=== PATIENT | female | born 1955 | race Caucasian/White ===

== ENCOUNTER 2022-05-20 06:35 | Day surgery (SDC) | payer BC, SELFPAY ==
[2022-05-20] VITALS (7 sets, daily range): BP systolic 130–177; BP diastolic 63–93; PULSE 48–67; RESP 16; TEMP 36.1–36.5; O2SAT 92–99; BMI 32.3
[2022-05-20] MEDS: LACTATED RINGERS 1000 ML 1,000 ML 100 ML IV (07:00)
[2022-05-20] MEDS: SODIUM CHLORIDE 0.9 % (FLUSH) 10 ML SYRINGE IVF (07:37)
[2022-05-20] MEDS: fentaNYL 100 MCG/2 ML inj IVP (07:50)
[2022-05-20] MEDS: MIDAZOLAM HCL 1 MG/ML inj IVP (07:51)
--- NOTE | 2022-05-20 08:02 | SUR.PREOP ---
TIME?OUT:?0753 PT/RN/MDA?VERIFICATION?OF?SURGICAL?SITE left wrist,?PROCEDURE ax block,?AND?CONSENT OBTAINED?PRIOR?TO?INVASIVE?PROCEDURE.
[2022-05-20] MEDS: CEFAZOLIN 2 GM INJ IVP (08:13)
--- NOTE | 2022-05-20 08:15 | CRLHL7_ITS ---
For Patients: As a result of the Century Cures Act, medical imaging exams and procedure reports are released immediately into your electronic medical record. You may view this report before your referring provider. If you have questions, please contact your health care provider. INDICATION: Open reduction internal fixation of the left wrist. Follow-up. TECHNIQUE: Fluoroscopically guided intraoperative evaluation of the left wrist. FINDINGS: 64.8 seconds fluoroscopy time utilized intraoperatively. Four spot images were obtained demonstrating pin fixation of the distal left radius. Three metallic pins were placed. IMPRESSION: Postsurgical change distal left radius. 64.8 seconds fluoroscopy time utilized intraoperatively. Dictated by Marcel Jay MD @ 05/20/2022 9:22:35 AM (Electronically Signed)
--- NOTE | 2022-05-20 08:39 | P.NB_ITS ---
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 Images saved: Yes Medications given in 5ml increments after negative aspiration: Ropivicaine %: 0.5 mL: 20 Needle gauge: 22 Decadron (mg): 10 Precedex (mcg): 25 Patient tolerated procedure well: Yes Block Charges Block Charge (with Pro Fee): Axillary Nerve Use of Ultrasound Machine for Block: Yes- US Guidance/pain block
--- NOTE | 2022-05-20 08:49 | PM.ORPRC ---
Procedure Note Date of procedure: 05/20/22 Procedure: SURGEON: Brayden Retana MD SLEEP TECHNOLOGIST: Jyoti An PA-C PREOPERATIVE DIAGNOSIS: Angulated 2 part extra-articular left upper extremity distal radius fracture POSTOPERATIVE DIAGNOSIS: Angulated 2 part extra-articular left upper extremity distal radius fracture NAME OF OPERATION: Closed reduction percutaneous pinning ANESTHESIA: Axillary block plus monitored anesthesia care ESTIMATED BLOOD LOSS: 0 mL COMPLICATIONS: None SPECIMENS: None DRAINS: None PREOPERATIVE ANTIBIOTICS: Ancef 2 grams INDICATIONS: The patient is a 67-year-old female who fell landing on their upper extremity sustaining the above injury. Given the amount of angulation, reduction and pin fixation were recommended. The risks, benefits and expected outcomes were discussed in detail. These included but were not limited to: Infection, bleeding, injury to blood vessel or nerve, venous thromboembolism. All questions were answered to their satisfaction. Use of an regional administrative assistant was necessary throughout the case for patient positioning and safety, maintenance of the reduction, pin site dressing and splint application. PROCEDURE: An axillary block was placed by Anesthesia. The patient was placed supine on the operating room table. IV sedation was administered. The upper extremity was prepped and draped in the usual sterile fashion. The reduction was obtained with longitudinal traction and volar force on the distal fragment. The image intensifier was used to confirm an anatomic reduction. We placed a 0.062 in K-wire retrograde through the radial styloid across the fracture site engaging the ulnar cortex of the proximal fragment. Its placement was confirmed with the image intensifier. We placed a 2nd 0.062 in K-wire parallel to this just volar to the original pin. Finally we placed a 3rd 0.062 in K-wire antegrade through the radial cortex of the proximal fragment across the fracture site engaging the ulnar side of the distal fragment. This construct was imaged in multiple views and was felt to have an excellent reduction with well placed pins. The pins were bent, cut off and were appropriately dressed. A well-padded short-arm dorsovolar splint was applied. Sponge and needle counts were correct x2. The patient tolerated the procedure well. There were no apparent complications. They were carefully transferred to the hospital bed and taken to the postanesthesia care unit in satisfactory condition. PLAN: The patient will be discharged home. They will work on elevation of the hand and active range of motion of the fingers. They will follow up in the office next week to assess the pin sites with three views of the wrist out of the splint prior to being seen in preparation for cast immobilization.
--- NOTE | 2022-05-20 09:11 | W.ANESCHARGE ---
Anesthesia Charges Start Date/Time Anesthesia Start Date: 05/20/22 Anesthesia Start Time: 08:03 Stop Date/Time Anesthesia Stop Date: 05/20/22 Anesthesia Stop Time: 09:10 Summary Emergency: No
[2022-05-20] MEDS: OxyCODONE/APAP 5-325 TABLET PO (09:51)
== END 2022-05-20 10:30 | disposition home or self-care (01) ==
PROVIDERS: PCP Family Medicine; Visit Provider Orthopaedic Surgery
PROC: (CPT 25606; principal; 2022-05-20 08:15)
DX: S52.552A Other extraarticular fracture of lower end of left radius, initial encounter for closed fracture (principal)
CPT/HCPCS: 25606; 01830; 64417; 73100; 73110; 76000; 76942; A4580; A9270; J0690; J1100; J2250; J2405; J2704; J2795; J3010; J3490; J7120